=== PATIENT | male | born 1965 | race American Indian/Alaskan Native ===

== ENCOUNTER 2017-07-06 05:11 | Day surgery (SDC) | payer OTHER ==
[2017-07-03 10:31] VITALS: BMI 31.1
[~2017-07-06 05:11] MED LIST: BUPIVACAINE HCL/PF (5 MG/ML) 30 ML VIAL IJ ONE; LIDOCAINE 1%/EPI 1:100000 (20 ML MULTI DOSE VIAL) IJ ONE
--- NOTE | 2017-07-06 08:08 | HP ---
[facility] - Chief Complaint Chief Complaint: right knee pain - Past Medical History Allergies/Adverse Reactions: Allergies Allergy/AdvReac Type Severity Reaction Status Date / Time No Known Allergies Allergy Unverified 07/03/17 10:37 - Current Medications Current Medications: Home Medications Medication Instructions Recorded Metformin HCl [Riomet] 500 mg PO BID 02/19/12 Telmisartan [Micardis] 80 mg PO DAILY 02/19/12 Oxycodone HCl/Acetaminophen 1 tab PO Q6H #20 tablet MDD 4 07/06/17 [Percocet 5-325 mg Tablet] Satellite Physical Exam - Physical Examination General Appearance: Well Nourished, Well Developed, Alert & Oriented x3 ENT: Clear Lung: Normal air movement Heart: Regular rate & rhythm Extremities: Other (right knee- + swelling, + ttp, decr rom, + mcmurrays, nvi) Neurological: Intact, Alert, Oriented Satellite Impression/Plan - Impression/Plan Impression: right knee internal derangement Operative Procedure: right knee arthroscopy Date to be Performed: 07/06/17
[2017-07-06] MEDS ORDERED: ONDANSETRON 4 MG/2 ML VIAL IVPUSH PRN (08:19)
[2017-07-06] MEDS ORDERED: oxyCODONE HCL 5 MG TABLET PO PRN ×2 (08:19)
[2017-07-06] MEDS ORDERED: LACTATED RINGERS SOLUTION 1,000 ML IV SCH (08:30)
[2017-07-06] MEDS ORDERED: LIDOCAINE 1%/EPI 1:100000 (20 ML MULTI DOSE VIAL) ONE (09:01)
[2017-07-06] MEDS ORDERED: PROPOFOL 20 ML ONE (09:03)
[2017-07-06] MEDS ORDERED: fentaNYL CITRATE 250 MCG/5 ML VIAL ONE (09:03)
[2017-07-06] MEDS ORDERED: MIDAZOLAM HCL 2 MG/2 ML SINGLE DOSE VIAL ONE (09:03)
[2017-07-06] MEDS ORDERED: LIDOCAINE HCL/PF 2% SDV 5ML VIAL ONE (09:04)
[2017-07-06] MEDS ORDERED: DEXAMETHASONE SOD PHOSPHATE 4 MG/1 ML VIAL ONE (09:04)
[2017-07-06] MEDS ORDERED: LIDOCAINE 1%/EPI 1:100000 (20 ML MULTI DOSE VIAL) IJ ONE (10:29)
[2017-07-06] MEDS ORDERED: BUPIVACAINE HCL/PF (5 MG/ML) 30 ML VIAL IJ ONE ×3 (10:29→10:44)
[2017-07-06] MEDS ORDERED: LIDOCAINE 1%/EPI 1:100000 (50 ML MULTI DOSE VIAL) INF ONE (10:44)
--- NOTE | 2017-07-06 10:47 | OP ---
Operative Note - Note: Operative Date: 07/06/17 ([facility]) Pre-Operative Diagnosis: right knee internal derangement Operation: right knee arthroscopy with PMM Post-Operative Diagnosis: Same as Pre-op Surgeon: Tim Blake Anesthesiologist/INSULATION NOZZLEMAN: Do Johnson Anesthesia: General, Local Specimens Removed: shavings Estimated Blood Loss (mls): 5 Operative Report Dictated: Yes
[2017-07-06] MEDS ORDERED: KETOROLAC TROMETHAMINE 30 MG/1 ML VIAL ONE (11:29)
--- NOTE | 2017-07-06 11:32 | SPEC ---
DATE OF OPERATION: 07/06/2017 PREOPERATIVE DIAGNOSIS: Internal derangement, right knee. POSTOPERATIVE DIAGNOSIS: Internal derangement, right knee. PROCEDURE: Right knee arthroscopy, partial medial meniscectomy. SURGICAL ATTENDING: Tim Blake MD FENCE SETTER: No kindergarten teacher assistant. ANESTHESIA: General with LMA. CLOSURE: Nylon 4-0. COMPLICATIONS: None. CONDITION: To recovery room in stable condition. DESCRIPTION OF OPERATIVE PROCEDURE: Patient was taken to the operating room on July 06, 2017. General anesthesia with LMA was administered by the anesthesiologist. The right lower extremity was prepped and draped in the usual sterile fashion. The medial and lateral infrapatellar portal sites were infiltrated with 1% Xylocaine with epinephrine. Both portals were then made with a 15 blade followed by a blunt trocar. The scope was placed in the lateral infrapatellar portal and up into the suprapatellar pouch. The knee was inflated with a cocktail of 10 mL of 1% Xylocaine, 10 mL of 0.5% Marcaine, and 20 mL of arthroscopic saline. This was allowed to sit in the knee for a few minutes to allow the anesthetic to work intraarticularly. The scope was placed in the lateral infrapatellar portal and up into the suprapatellar pouch. The pouch was visualized to be clean. The medial and lateral gutters were visualized to be clean. The undersurface of the patella and trochlea were visualized to be intact. With valgus stress on the knee, the medial compartment was entered. The medial meniscus was visualized, probed, and found to have a complex tear of the posterior horn. This was debrided back to smooth stable meniscal tissue using a meniscal biter and arthroscopic shaver. The medial femoral condyle was run and found to be intact as well as the medial tibial plateau. At 90 degrees, the ACL was visualized, probed, and found to be intact. In the figure-4 position, the lateral compartment was entered. The lateral meniscus was visualized, probed, and found to be intact. The lateral femoral condyle was run and found to be intact as was the lateral tibial plateau. The knee was irrigated with copious amounts of irrigation and then the fluid was drained. The inferomedial portal was closed then with 4-0 nylon. Prior to pulling the trocar from the lateral infrapatellar portal, 20 mL of 0.5% Marcaine was infused into the knee for postoperative analgesia. The trocar was then pulled and the incision was closed with 4-0 nylon suture. A sterile pressure dressing was applied. Patient awakened from anesthesia and transferred to recovery in stable condition. No complication. Estimated blood loss negligible. Jaylon MITCHELL/[id number]
[2017-07-06 12:04] VITALS: TEMP 98.1
[2017-07-06 15:03] VITALS: BP 150/69; PULSE 90
--- NOTE | 2017-07-09 17:31 | PATH ---
Surgical Pathology Report Patient Name: EFE TREADWELL [facility]. Rec. #: [id number] /Age/Gender: 1965 (Age: 52) / M Account: [id number] Location: [facility] SURGICAL Taken: 07/06/2017 Received: 07/06/2017 Reported: 07/09/2017 Physicians: Tim Blake M.D. Specimen(s) Received RIGHT KNEE SHAVINGS Clinical History Right knee tear Final Diagnosis KNEE SHAVINGS, RIGHT, ARTHROSCOPY: FRAGMENTS OF CARTILAGE, DENSE FIBROCONNECTIVE TISSUE, ADIPOSE TISSUE, AND SYNOVIUM. 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 Electronically Signed Liliana Ramirez M.D. Gross Description Received in formalin, labeled "right knee shavings," is a 4.0 x 3.5 x 0.5 cm. aggregate of fernandez-yellow soft tissue fragments. A door to door sales representative portion is submitted in one cassette. 07/06/2017 [facility]07/06/2017
== END 2017-07-06 14:25 | disposition home or self-care (01) ==
LOC: JASU-SURG 05:11
PROVIDERS: ATTEND Orthopaedic Surgery
PROC: 0SBC4ZZ Excision of Right Knee Joint, Percutaneous Endoscopic Approach (ICD-10-PCS; principal; 2017-07-06 10:15)
DX: M23.306 Other meniscus derangements, unspecified meniscus, right knee (principal)
CPT/HCPCS: 82962; 88304-TC; 94760

== ENCOUNTER 2020-09-24 05:00 | Emergency (ER) | payer OTHER ==
[2020-09-24 05:22] VITALS: BMI 30.7
[2020-09-24] MEDS ORDERED: ACETAMINOPHEN 1000 MG/100 ML VIAL (NON FORMULARY) IVPB ONE (05:26)
[2020-09-24] MEDS ORDERED: ACETAMINOPHEN INJECTION 100 ML IVPB ONE (05:33)
[2020-09-24 06:35] LABS: BASO % 0.6 % (0-2.0); EOS % 0.8 % (0-4.5); HEMATOCRIT 44.6 % (35.4-49); HEMOGLOBIN 15.3 GM/dL (11.7-16.9); LYMPH % 17.1 % (8-40); MCH 30.4 pg (25.7-33.7); MCHC 34.3 g/dl (32.0-35.9); MEAN CELL VOLUME 88.5 fl (80-96); MEAN PLT VOLUME 8.2 fl (7.5-11.1); NEUT % 72.5 % (42.8-82.8); PLATELET COUNT 280 10^3/uL (134-434); RBC 5.04 M/mm3 (4.00-5.60); RDW 13.2 % (11.9-15.9); WHITE BLOOD COUNT 17.5 K/mm3 (4.0-10.0)
[2020-09-24 06:41] LABS: CHLORIDE 103 mmol/L (98-107); INR 1.01 (0.83-1.09); PROTHROMBIN TIME (PATIENT) 12.4 SEC (9.7-13.0); SODIUM 136 mmol/L (136-145)
[2020-09-24 06:43] LABS: CALCIUM 8.5 mg/dL (8.5-10.1)
[2020-09-24 06:44] LABS: ACTIVATED PTT 27.2 SECONDS (25.2-36.5); ALBUMIN 3.7 g/dl (3.4-5.0); ANION GAP 6 MMOL/L (8-16); BLOOD UREA NITROGEN 13.2 mg/dL (7-18); CO2 28 mmol/L (21-32); GLUCOSE,RANDOM 219 mg/dL (74-106); LIPASE 304 U/L (73-393)
[2020-09-24 06:47] LABS: CREATININE 1.1 mg/dL (0.55-1.3); SGOT/AST 11 U/L (15-37); SGPT/ALT 30 U/L (13-61)
[2020-09-24 06:48] LABS: TOT PROT 7.6 g/dl (6.4-8.2)
[2020-09-24 06:50] LABS: ALK PHOS 62 U/L (45-117)
[2020-09-24 06:53] LABS: LACTIC ACID 2.2 mmol/L (0.4-2.0)
[2020-09-24 09:08] LABS: URINE APPEARANCE CLEAR; URINE BILIRUBIN NEGATIVE (NEGATIVE); URINE COLOR YELLOW
[2020-09-24 09:09] LABS: PH,URINE 5.5 (5.0-8.0); URINE KETONE TRACE (NEGATIVE); URINE LEUK ESTERASE NEGATIVE (NEGATIVE); URINE NITRITE NEGATIVE (NEGATIVE); URINE PROTEIN TRACE (NEGATIVE); URINE UROBILINOGEN 0.2 mg/dL (0.2-1.0)
[2020-09-24 10:04] VITALS: BP 127/82; PULSE 96; TEMP 100
== END 2020-09-24 10:22 | disposition home or self-care (01) ==
LOC: JER 05:00
PROC: 3E0333Z Introduction of Anti-inflammatory into Peripheral Vein, Percutaneous Approach (ICD-10-PCS; principal; 2020-09-24)
DX: K57.92 Diverticulitis of intestine, part unspecified, without perforation or abscess without bleeding (principal)
CPT/HCPCS: 36415; 74177-TC; 80053; 81003; 82550; 82962; 83605; 83690; 84484; 85025; 85610; 85730; 86850; 86900; 86901; 87086; 93005; 93010; 99285-25; C9803; J0131; Q9967; U0003; U0005

== ENCOUNTER 2020-11-30 04:57 | Day surgery (SDC) | payer OTHER ==
[2020-11-26 12:22] VITALS: BMI 28.6
[2020-11-30 09:46] VITALS: TEMP 98.7
[2020-11-30 10:15] VITALS: BP 147/92; PULSE 76
== END 2020-11-30 10:34 | disposition home or self-care (01) ==
LOC: JASU-ENDO 04:57
PROVIDERS: ATTEND Internal Medicine Gastroenterology
PROC: 0DJD8ZZ Inspection of Lower Intestinal Tract, Via Natural or Artificial Opening Endoscopic (ICD-10-PCS; principal; 2020-11-30 09:00)
DX: Z12.11 Encounter for screening for malignant neoplasm of colon (principal); K57.30 Diverticulosis of large intestine without perforation or abscess without bleeding; K64.8 Other hemorrhoids

== ENCOUNTER 2023-01-01 04:50 | Day surgery (SDC) | payer OTHER ==
[2022-12-29 12:43] VITALS: BMI 29.3
[2023-01-01] MEDS ORDERED: FENTANYL CITRATE/PF 50 MCG/ML VIAL ONE (13:15)
[2023-01-01] MEDS ORDERED: MIDAZOLAM HCL 2 MG/2 ML SINGLE DOSE VIAL ONE (13:15)
[2023-01-01] MEDS ORDERED: ONDANSETRON 4 MG/2 ML VIAL ONE (13:41)
[2023-01-01 14:18] VITALS: RESP 18
[2023-01-01 15:26] VITALS: BP 149/87; PULSE 76; TEMP 97.4
== END 2023-01-01 15:00 | disposition home or self-care (01) ==
LOC: JASU-SURG 04:50
PROVIDERS: ATTEND Urology
PROC: 0TF4XZZ Fragmentation in Left Kidney Pelvis, External Approach (ICD-10-PCS; principal; 2023-01-01 13:00)
DX: N20.0 Calculus of kidney (principal)
CPT/HCPCS: 82962